=== PATIENT | male | born 1950 | race Caucasian/White ===

== ENCOUNTER 2021-11-17 08:46 | Outpatient (REF) | payer MEDICARE, SELFPAY ==
[2021-11-17 11:52] LABS: Appearance Urine CLEAR; Color Urine YELLOW; Glucose Urine UA NEG (NEG); Leukocyte Esterase Urine NEG (NEG); Nitrite Urine NEG (NEG); Specific Gravity - Urine 1.015 (1.005-1.025); Urine Blood NEG (NEG); Urine Ketones NEG (NEG); Urine Protein NEG (NEG-TRACE)
[2021-11-17 11:54] LABS: Alanine Aminotransferase 29 U/L (0-40); Albumin Level 4.6 g/dL (3.5-5.0); Alkaline Phosphatase 54 U/L (39-117); Anion Gap 12 (12-20); Aspartate Amino Transferase 19 U/L (5-37); Bilirubin Total 0.9 mg/dL (0.0-1.0); Blood Urea Nitrogen 18 mg/dL (9-16); Calcium 10.4 mg/dL (8.4-10.2); Carbon Dioxide 27 mmol/L (22-29); Chloride 106 mmol/L (96-108); Cholesterol 229 mg/dL; Estimated Glomerular Filt Rate > 60; Glucose Fasting 105 mg/dL (60-99); HDL Cholesterol 47 mg/dL; LDL Cholesterol Calculated 150 mg/dl; Potassium 4.7 mmol/L (3.3-5.1); Sodium 140 mmol/L (135-145); Total Protein 7.4 g/dL (6.5-8.0); Triglycerides 161 mg/dL
[2021-11-17 11:55] LABS: Hematocrit 48.2 % (42.0-52.0); Hemoglobin 15.9 g/dl (14.0-18.0); Mean Corpuscular Hemoglobin 31.1 pg (27.0-33.0); Mean Corpuscular Volume 94.3 fL (80.0-98.0); Mean Platelet Volume 10.6 fL (9.4-12.4); Platelet Count 198 X10*3/uL (160-400); Red Blood Count 5.11 X10*6/uL (4.60-5.80); Red Cell Distribution Width 12.3 % (11.0-16.0); White Blood Count 5.6 X10*3/uL (4.8-10.8)
[2021-11-17 12:16] LABS: Prostate Specific Antigen Scr < 0.05 ng/mL (<0.05-4.0); Vitamin D 25-OH Total 34.6 ng/mL (>30)
[2021-11-17 12:26] LABS: Squamous Epithelial Cell Urine 1+ /LPF
[2021-11-17 12:27] LABS: Bacteria Urine TRACE /LPF; RBC Urine 0 /HPF (0); WBC Urine 0-2 /HPF (0-4)
== END 2021-11-17 08:47 | disposition home or self-care (01) ==
LOC: HO.HMGCLDS 08:46
PROVIDERS: Visit Provider Internal Medicine
DX: Z00.00 Encounter for general adult medical examination without abnormal findings (principal); Z12.5 Encounter for screening for malignant neoplasm of prostate; E78.5 Hyperlipidemia, unspecified; I10 Essential (primary) hypertension; E55.9 Vitamin D deficiency, unspecified
CPT/HCPCS: 36415; 80053; 80061; 81001; 82306; 84153; 85027

== ENCOUNTER 2022-11-20 08:45 | Outpatient (REF) | payer MEDICARE, SELFPAY ==
[2022-11-20 11:25] LABS: MANUAL DIFF FLAG NO
[2022-11-20 11:33] LABS: Appearance Urine Turbid; Color Urine Yellow; Glucose Urine UA Negative (Negative); Leukocyte Esterase Urine Negative (Negative); Nitrite Urine Negative (Negative); PH 5.5 (5.0-9.0); Specific Gravity - Urine 1.015 (1.005-1.025); Urine Blood Negative (Negative); Urine Ketones Negative (Negative); Urine Protein Negative (Neg-Trace)
[2022-11-20 11:43] LABS: Basophils Absolute Auto 0.1 X10*3/uL (0.0-0.2); Basophils Percent Auto 1.2 % (0-2); Eosinophils Absolute Auto 0.2 X10*3/uL (0.0-0.4); Eosinophils Percent Auto 2.6 % (0-4); Hematocrit 47.2 % (42.0-52.0); Hemoglobin 15.7 g/dl (14.0-18.0); Imm Gran Abs Auto 0.01 X10*3/uL (0.00-0.03); Imm Gran Pct Auto 0.2 % (0.0-0.4); Lymphocytes Absolute Auto 1.9 X10*3/uL (1.2-4.9); Lymphocytes Percent Auto 32.8 % (20-40); Mean Corpuscular HGB Conc 33.3 g/dl (31.0-36.0); Mean Corpuscular Hemoglobin 31.6 pg (27.0-33.0); Mean Platelet Volume 10.5 fL (9.4-12.4); Monocytes Absolute Auto 0.5 X10*3/uL (0.1-1.2); Monocytes Percent Auto 8.5 % (2-11); Neutrophils Absolute Auto 3.2 x10*3/uL (2.0-8.3); Neutrophils Percent Auto 54.7 % (45-73); Platelet Count 206 X10*3/uL (160-400); Red Blood Count 4.97 X10*6/uL (4.60-5.80); Red Cell Distribution Width 12.7 % (11.0-16.0); White Blood Count 5.8 X10*3/uL (4.8-10.8)
[2022-11-20 11:49] LABS: Bacteria Urine None Seen (None Seen); Hyaline Casts Urine 0-2 /LPF (0-2); RBC Urine 0-2 /HPF (0-2); Squamous Epithelial Cell Urine 0-2 /HPF (0-2); WBC Urine 0-5 /HPF (0-5)
[2022-11-20 11:53] LABS: Estimated Average Glucose 105 mg/dL; Hemoglobin A1c % 5.3 %
[2022-11-20 12:23] LABS: Alanine Aminotransferase 35 U/L (0-40); Albumin Level 4.8 g/dL (3.5-5.0); Alkaline Phosphatase 61 U/L (39-117); Anion Gap 13 (12-20); Aspartate Amino Transferase 23 U/L (5-37); Bilirubin Total 0.7 mg/dL (0.0-1.0); Blood Urea Nitrogen 14 mg/dL (9-16); Calcium 10.3 mg/dL (8.4-10.2); Carbon Dioxide 27 mmol/L (22-29); Chloride 107 mmol/L (96-108); Cholesterol 228 mg/dL; Estimated Glomerular Filt Rate > 60; Glucose Fasting 98 mg/dL (60-99); HDL Cholesterol 50 mg/dL; LDL Cholesterol Calculated 147 mg/dl; PSA,Total (Free>4and<10) < 0.10 ng/mL (0.00-4.00); Potassium 4.5 mmol/L (3.3-5.1); Sodium 142 mmol/L (135-145); Total Protein 7.3 g/dL (6.5-8.0); Triglycerides 159 mg/dL
== END 2022-11-20 08:46 | disposition home or self-care (01) ==
LOC: HO.HMGCLDS 08:45
PROVIDERS: PCP Internal Medicine; Visit Provider Internal Medicine
DX: Z00.00 Encounter for general adult medical examination without abnormal findings (principal); Z12.5 Encounter for screening for malignant neoplasm of prostate; I10 Essential (primary) hypertension; E78.5 Hyperlipidemia, unspecified
CPT/HCPCS: 36415; 80053; 80061; 81001; 83036; 84153; 85025

== ENCOUNTER 2023-11-24 07:41 | Outpatient (AMB) | payer MEDICARE, SELFPAY ==
[2023-11-24 07:54] VITALS: BP 112/70; PULSE 56; O2SAT 97; BMI 24.1
--- NOTE | 2023-11-24 07:54 | MHC.PC.OV ---
Vital Signs 11/24/23 07:54 Height 6 ft Weight 178 lb BMI 24.1 BP 112/70 Blood Pressure Location Lt brachial Position Sitting Pulse 56 Pulse Source Pulse Oximeter Pulse Oximetry (%) 97 Oxygen Delivery Method Room Air Intake Visit Reasons: Annual PE Intake Note: Pt is here today for a PE. Allergies albuterol [ProAir HFA] Allergy (Unknown, Verified 11/24/23 08:02) unknown atorvastatin [Lipitor] Allergy (Unknown, Verified 11/24/23 08:02) unknown moxifloxacin [From Avelox] Allergy (Unknown, Verified 11/24/23 08:02) unknown niacin [Niaspan Extended-Release] Allergy (Unknown, Verified 11/24/23 08:02) unknown rosuvastatin [Crestor] Allergy (Unknown, Verified 11/24/23 08:02) unknown simvastatin Allergy (Unknown, Verified 11/24/23 08:02) unknown Medication List - Last Reconciled 11/24/23 by Aliyah Lopes MD amlodipine 5 mg PO DAILY losartan 100 mg PO DAILY Tobacco use date assessed: 11/24/23 Fall risk assessment: No Falls in past year Last assessed Fall Risk: 11/24/23 Dental Screening Dental Screen Date: 11/24/23 Did you have a dental visit in the last 12 months?: Yes Did you have a dental problem in the last 6 months where you did not have access to dental care?: No Was dental information given to patient?: Patient has dentist HPI Annual PE HPI Details Pt presents for PE. Pt c/o persistent cough since URI 1 month ago. Pt was treated with Prednisone and cough syrup without relief in [place]. Patient denies fever chills pleurisy shortness of breath wheezing. [facility] Medical History Vitamin D deficiency Annual physical exam Colonoscopy refused Actinic keratosis Radiculopathy of lumbar region History of prostate cancer Hyperlipidemia HTN (hypertension) Surgical History H/O prostatectomy Family History Father No problems noted. Mother No problems noted. Social History Housing: House Patient Tobacco Use Status: Former Tobacco user e-Cigarette/Vaping Use: Never Used Second Hand Smoke Exposure: No service: Yes Current occupational status: retired Cognitive needs: No Hearing needs: No Vision needs: Yes Questionnaire PHQ-9 Over the last 2 weeks, how often have you been bothered by any of the following problems? 1. Little interest or pleasure in doing things: not at all 2. Feeling down, depressed, or hopeless: not at all 3. Trouble falling or staying asleep, or sleeping too much: not at all 4. Feeling tired or having little energy: not at all 5. Poor appetite or overeating: not at all 6. Feeling bad about yourself - or that you are a failure or have let yourself or your family down: not at all 7. Trouble concentrating on things, such as reading the newspaper or watching television: not at all 8. Moving or speaking so slowly that other people could have noticed. Or the opposite - being so fidgety or restless that you have been moving around a lot more than usual: not at all 9. Thoughts that you would be better off or of hurting yourself in some way: not at all Total score: 0 Depression Screening Interpretation: Negative Depression Screening Done: Yes Source: Developed by Drs. Kashmir Avina, Carolina Pate, Mikie Mcneal and colleagues, with an educational julisa from [employer] software. Thrive Questionnaire Date Thrive assessed: 11/24/23 I am a: Patient What is your living situation today?: I have a steady place to live Within the past 12 months, did the food you bought not last and you didn't have the money to get more?: Never true Within the past 12 months, did you worry whether your food would run out before you got money to buy more?: Never true Do you have trouble paying for medicines?: No Do you have trouble getting transportation to medical appointments?: No Do you have trouble paying your heating and electricity bill?: No Do you have trouble taking care of your child, family member or friend?: No Do you have trouble with day-to-day activities such as bathing, preparing meals, shopping, managing finances, etc.?: No Are you currently unemployed and looking for a job?: No Are you interested in more education?: No Please select the resources that you would like help with: None THRIVE Score: 0 AUDIT C Alcohol Use Questionnaire (AUDIT-C) 1. How often do you have a drink containing alcohol?: Monthly or less 2. How many drinks containing alcohol do you have on a typical day when you are drinking?: 1 or 2 3. How often do you have six or more drinks on one occasion?: Never Total Score: 1 JASON-7 AMB Questionnaire JASON-7 Date JASON - 7 assessed: 11/24/23 Feeling nervous, anxious, or on edge: 0 = Not at all Not being able to stop or control worryin = Not at all Worrying too much about different things: 0 = Not at all Trouble relaxin = Not at all Being so restless that it is hard to sit still: 0 = Not at all Becoming easily annoyed or irritable: 0 = Not at all Feeling afraid as if something awful might happen: 0 = Not at all Total JASON-7 score (0-4 normal; 5-9 mild; 10-14 moderate; 15-21 severe): 0 Source: Developed by Drs. Kashmir Avina, Carolina Pate, Mikie Mcneal and colleagues, with an educational julisa from [employer] software. Review of Systems Const All systems reviewed & are unremarkable except as noted in HPI and below Eyes Reports no additional complaints ENT Reports no additional complaints Card Reports no additional complaints Resp Reports no additional complaints GI Reports no additional complaints Reports no additional complaints Musc Reports no additional complaints Physical exam (Primary Care) Vital Signs: Last Vital Signs Pulse 56 11/24/23 07:54 BP 112/70 11/24/23 07:54 Pulse Ox 97 11/24/23 07:54 Oxygen Delivery Method Room Air 11/24/23 07:54 BMI result Body Mass Index 24.1 Tobacco/Smoking Status: Tobacco use Status Tobacco use date assessed 11/24/23 11/24/23 08:08 Patient Tobacco Use Status Former Tobacco user 11/24/23 07:55 e-Cigarette/Vaping Use Never Used 11/24/23 07:55 PHQ-9: PHQ-9 Score PHQ-9: Total score 0 11/24/23 08:41 Depression Screening Interpretation: Negative Thrive Assessment: Date of Thrive Assessment Date Thrive assessed 11/24/23 11/24/23 08:08 Const General: no acute distress HENMT Head: Yes normal to inspection Ears: hearing grossly normal bilaterally Mouth: Normal oral and palatal mucosa present Throat: Yes posterior oropharynx normal Eyes General: appearance normal, both eyes and all related structures Neck Neck: Yes no lymphadenopathy and Yes supple Resp Effort & Inspection: normal respiratory effort Auscultation: crackles Cardio Rhythm: regular rhythm Heart sounds: S1 normal heart sound present and S2 normal heart sound present GI Inspection: Yes normal to inspection Palpation (GI): Soft to palpation Percussion: Yes normal to percussion Auscultation: normal bowel sounds Assessment and Plan Assessment & Plan (1) HTN (hypertension): Code(s): I10 - Essential (primary) hypertension Plan: Continue amlodipine and losartan (2) Hyperlipidemia: Code(s): E78.5 - Hyperlipidemia, unspecified Plan: Continue low-cholesterol diet (3) Annual physical exam: Code(s): Z00.00 - Encounter for general adult medical examination without abnormal findings Plan: Well-balanced diet regular physical activity discussed with the patient, patient declined colonoscopy Cologuard will be checked (4) Bronchitis: Code(s): J40 - Bronchitis, not specified as acute or chronic Plan: Z-Scooter as prescribed and supportive care discussed with the patient Orders: Orders Comprehensive [place]. Panel Fast Today E78.5 - Hyperlipidemia, unspecified, I10 - Essential (primary) hypertension, Z00.00 - Encounter for general adult medical examination without abnormal findings Complete Blood Count Auto Diff Today E78.5 - Hyperlipidemia, unspecified, I10 - Essential (primary) hypertension, Z00.00 - Encounter for general adult medical examination without abnormal findings Lipid Panel Today E78.5 - Hyperlipidemia, unspecified, I10 - Essential (primary) hypertension, Z00.00 - Encounter for general adult medical examination without abnormal findings PSA,Total (Free>4and<10) Today E78.5 - Hyperlipidemia, unspecified, I10 - Essential (primary) hypertension, Z00.00 - Encounter for general adult medical examination without abnormal findings UA w Microscopic Today E78.5 - Hyperlipidemia, unspecified, I10 - Essential (primary) hypertension, Z00.00 - Encounter for general adult medical examination without abnormal findings Referrals Cologuard Test E78.5 - Hyperlipidemia, unspecified, I10 - Essential (primary) hypertension, Z00.00 - Encounter for general adult medical examination without abnormal findings, Z12.11 - Encounter for screening for malignant neoplasm of colon, Z12.12 - Encounter for screening for malignant neoplasm of rectum Medications: New azithromycin For 250 mg dose pack: take 500 mg today (day 1), then 250 mg for 4 days (days 2-5) PO 6 tabs 0RF Refilled losartan 100 mg PO DAILY 90 tabs 3RF amlodipine 5 mg PO DAILY 90 tabs 3RF Coding Level of Care Code Est Pt Prev Care >65y(17023) Diagnoses HTN (hypertension) I10 Hyperlipidemia E78.5 Annual physical exam Z00.00 Bronchitis J40
== END 2023-11-24 15:54 | disposition home or self-care (01) ==
PROVIDERS: Visit Provider Internal Medicine
DX: I10 Essential (primary) hypertension (principal); E78.5 Hyperlipidemia, unspecified; Z00.00 Encounter for general adult medical examination without abnormal findings; J40 Bronchitis, not specified as acute or chronic
CPT/HCPCS: 99397

== ENCOUNTER 2023-11-25 07:32 | Outpatient (REF) | payer MEDICARE, SELFPAY ==
[2023-11-25 10:36] LABS: MANUAL DIFF FLAG NO
[2023-11-25 10:47] LABS: Basophils Percent Auto 0.7 % (0-2); Eosinophils Absolute Auto 0.3 X10*3/uL (0.0-0.4); Eosinophils Percent Auto 4.9 % (0-4); Hematocrit 44.4 % (42.0-52.0); Hemoglobin 14.8 g/dl (14.0-18.0); Imm Gran Abs Auto 0.01 X10*3/uL (0.00-0.03); Imm Gran Pct Auto 0.2 % (0.0-0.4); Lymphocytes Absolute Auto 1.7 X10*3/uL (1.2-4.9); Lymphocytes Percent Auto 31.5 % (20-40); Mean Corpuscular HGB Conc 33.3 g/dl (31.0-36.0); Mean Corpuscular Hemoglobin 31.2 pg (27.0-33.0); Mean Corpuscular Volume 93.5 fL (80.0-98.0); Mean Platelet Volume 10.4 fL (9.4-12.4); Monocytes Absolute Auto 0.4 X10*3/uL (0.1-1.2); Monocytes Percent Auto 8.1 % (2-11); Neutrophils Absolute Auto 2.9 x10*3/uL (2.0-8.3); Neutrophils Percent Auto 54.6 % (45-73); Platelet Count 182 X10*3/uL (160-400); Red Blood Count 4.75 X10*6/uL (4.60-5.80); Red Cell Distribution Width 12.7 % (11.0-16.0); White Blood Count 5.3 X10*3/uL (4.8-10.8)
[2023-11-25 10:48] LABS: Appearance Urine Clear; Color Urine Yellow; Glucose Urine UA Negative (Negative); Leukocyte Esterase Urine Negative (Negative); Nitrite Urine Negative (Negative); PH 5.5 (5.0-9.0); Specific Gravity - Urine 1.025 (1.005-1.025); Urine Blood Negative (Negative); Urine Ketones Negative (Negative); Urine Protein Negative (Neg-Trace)
[2023-11-25 11:02] LABS: Bacteria Urine None Seen (None Seen); Hyaline Casts Urine 0-2 /LPF (0-2); RBC Urine 0-2 /HPF (0-2); Squamous Epithelial Cell Urine 0-2 /HPF (0-2); WBC Urine 0-5 /HPF (0-5)
[2023-11-25 11:07] LABS: Alanine Aminotransferase 22 U/L (0-40); Albumin Level 4.4 g/dL (3.5-5.0); Alkaline Phosphatase 57 U/L (39-117); Anion Gap 13 (12-20); Aspartate Amino Transferase 17 U/L (5-37); Bilirubin Total 0.5 mg/dL (0.0-1.0); Blood Urea Nitrogen 18 mg/dL (9-16); Calcium 10.2 mg/dL (8.4-10.2); Carbon Dioxide 23 mmol/L (22-29); Chloride 108 mmol/L (96-108); Cholesterol 193 mg/dL (<200); Estimated Glomerular Filt Rate > 60; Glucose Fasting 91 mg/dL (60-99); HDL Cholesterol 50 mg/dL (>40); LDL Cholesterol Calculated 124 mg/dL (<100); Potassium 4.4 mmol/L (3.3-5.1); Sodium 140 mmol/L (135-145); Total Protein 7.2 g/dL (6.5-8.0); Triglycerides 97 mg/dL (<150)
[2023-11-25 11:20] LABS: PSA,Total (Free>4and<10) < 0.10 ng/mL (0.00-4.00)
== END 2023-11-25 07:33 | disposition home or self-care (01) ==
LOC: HO.HMGCLDS 07:32
PROVIDERS: PCP Internal Medicine; Visit Provider Internal Medicine
DX: Z00.00 Encounter for general adult medical examination without abnormal findings (principal); I10 Essential (primary) hypertension; Z12.5 Encounter for screening for malignant neoplasm of prostate; E78.5 Hyperlipidemia, unspecified
CPT/HCPCS: 36415; 80053; 80061; 81001; 84153; 85025

== ENCOUNTER 2024-06-14 11:05 | Outpatient (AMB) | payer MEDICARE, SELFPAY ==
--- NOTE | 2024-06-14 11:13 | AM.OFFWIN_ITS ---
Intake Vital Signs 06/14/24 11:17 Height 6 ft Weight 175 lb BMI 23.7 BP 122/80 Blood Pressure Location Rt brachial Position Sitting Pulse 83 Pulse Source Pulse Oximeter Temp 98.4 F Temp Source Oral Pulse Oximetry (%) 97 Oxygen Delivery Method Room Air Intake Visit Reasons: EP Cough, Mucus Intake Note: Patient here for voice being raspy, cough and mucus that started a few days ago. Patient Tobacco Use Status: Former Tobacco user Allergies albuterol [ProAir HFA] Allergy (Unknown, Verified 06/14/24 11:17) unknown atorvastatin [Lipitor] Allergy (Unknown, Verified 06/14/24 11:17) unknown moxifloxacin [From Avelox] Allergy (Unknown, Verified 06/14/24 11:17) unknown niacin [Niaspan Extended-Release] Allergy (Unknown, Verified 06/14/24 11:17) unknown rosuvastatin [Crestor] Allergy (Unknown, Verified 06/14/24 11:17) unknown simvastatin Allergy (Unknown, Verified 06/14/24 11:17) unknown Do you need a note to return to daycare/school/sports/work: No HPI HPI Comments History of Present Illness Details History of Present Illness The patient is a 73-year-old male presenting with persistent cough and chest congestion. He reports that the symptoms began three to four days prior with a raspy throat, which evolved into a productive cough within a day. He describes nocturnal coughing leading to sleeplessness and producing clear liquid initially, progressing to green sputum by the morning of this visit. The patient denies shortness of breath but reports feeling congestion localized within the chest. The patient has a known history of asthma and reports no current use of asthma medications due to a previous allergic reaction to an inhaler, which resulted in severe breathing difficulties. Previous adverse reactions to moxifloxacin are reported, likely due to administration on an empty stomach. No recent fever or wheezing has been noted, and home monitoring of oxygen saturation and temperature have been within normal ranges. There is a documented history of rapidly progressing chest congestion following colds, necessitating prompt antibiotic interventions to prevent bronchial complications by his PCP. Physical Exam General: Cooperative, healthy appearing, comfortable and no acute distress Orientation/consciousness: Patient oriented x3 Limitations: No limitations Head: Normal to inspection Ears: Hearing grossly normal bilaterally, external ears normal, right ear slightly erythematous, slight sliver of effusion on right TM, left TM normal Nose: Normal external nose present, Normal nares present and No nasal discharge present Face and sinus: Normal facial exam and Yes sinuses nontender Mouth: Normal oral and palatal mucosa present and moist mucous membranes Throat: Yes tonsils normal, Yes uvula midline. Posterior oropharynx erythema Eyes: Appearance normal, both eyes and all related structures Neck: Normal visual inspection Respirtory: Clear to auscultation bilaterally. Normal respiratory effort, able to speak in complete sentences, Actively coughing, no respiratory distress, not tachypneic, no tripod positioning and no use of accessory muscles Cardiovascular: Regular rate and rhythm. Normal S1 and S2 Skin: No rashes or lesions noted Neuro: Patient oriented x3 Extremities: Normal to inspection and Yes no clubbing, cyanosis or edema PFSH Medical History Vitamin D deficiency Annual physical exam Colonoscopy refused Actinic keratosis Radiculopathy of lumbar region History of prostate cancer Hyperlipidemia HTN (hypertension) Surgical History H/O prostatectomy Family History Father No problems noted. Mother No problems noted. Social History Housing: House Patient Tobacco Use Status: Former Tobacco user e-Cigarette/Vaping Use: Never Used Second Hand Smoke Exposure: No service: Yes Current occupational status: retired Cognitive needs: No Hearing needs: No Vision needs: Yes Review of Systems Const All systems reviewed & are unremarkable except as noted in HPI and below Physical Exam Vital Signs: Last Vital Signs Temp 98.4 F 06/14/24 11:17 Pulse 83 06/14/24 11:17 BP 122/80 06/14/24 11:17 Pulse Ox 97 06/14/24 11:17 Oxygen Delivery Method Room Air 06/14/24 11:17 BMI result Body Mass Index 23.7 Assessment & Plan Assessment & Plan (1) Bronchitis: Code(s): J40 - Bronchitis, not specified as acute or chronic Plan: 1. Prescribed Zpak for antibiotic and Anti-inflammatory effects. Advised to just take this antibiotic but if things were to worsen over the weekend, I have sent a prescription for Augmentin for coverage against suspected bacterial infections if symptoms worsen, especially given patient's history of rapid bronchial involvement. Recommended he not pick this up from the pharmacy unless things worsen over the holiday weekend, explained that this would treat him for an actual pneumonia which I do not think he has now. 2. Asthma: - Acknowledge the patient's refusal of inhaler use due to severe past allergic reaction; instead, emphasize monitoring of respiratory symptoms. 4. Ears: - Recommend [id number] ear drops, potentially beneficial for add ressing chronic itchiness unrelated to infection. Antibiotics prescribed would cover this small infection in the right ear 6. Follow-Up: - Schedule close follow-up should symptoms not resolve or worsen, particularly to avoid emergency care during the long weekend. Patient was informed and verbally consented to the use of an ambient scribe for clinic note documentation during this visit Medications: New azithromycin For 250 mg dose pack: take 500 mg today (day 1), then 250 mg for 4 days (days 2-5) PO 6 tabs 0RF amoxicillin-pot clavulanate 875-125 mg 1 tab PO Q12H 10 tabs 0RF Coding Level of Care Code Est Pt Level 3 (83522) Diagnoses Bronchitis J40
[2024-06-14 11:17] VITALS: BP 122/80; PULSE 83; TEMP 36.9; O2SAT 97; BMI 23.7
== END 2024-06-14 12:05 | disposition home or self-care (01) ==
PROVIDERS: PCP Internal Medicine; Visit Provider Physician Assistant
DX: J40 Bronchitis, not specified as acute or chronic (principal)

== ENCOUNTER → 2024-06-14 11:05 | Outpatient (BNVA) | payer MEDICARE, SELFPAY | PROVIDERS: PCP Internal Medicine; Visit Provider Physician Assistant | DX: J40 Bronchitis, not specified as acute or chronic (principal) | CPT/HCPCS: 99212 ==

== ENCOUNTER 2024-08-31 12:46 | Outpatient (AMB) | payer MEDICARE, SELFPAY ==
[2024-08-31 12:51] VITALS: BP 132/80; PULSE 76; TEMP 36.6; O2SAT 96; BMI 23.7
--- NOTE | 2024-08-31 12:51 | MHC.OFFWIV ---
Intake Vital Signs 08/31/24 12:51 Height 6 ft Weight 175 lb BMI 23.7 BP 132/80 Blood Pressure Location Rt brachial Position Sitting Pulse 76 Pulse Source Pulse Oximeter Temp 97.9 F Temp Source Oral Pulse Oximetry (%) 96 Intake Visit Reasons: Ep-cough, wheezing Intake Note: pt is here for cough, wheezing Patient Tobacco Use Status: Former Tobacco user Allergies albuterol [ProAir HFA] Allergy (Unknown, Verified 08/31/24 12:52) unknown atorvastatin [Lipitor] Allergy (Unknown, Verified 08/31/24 12:52) unknown moxifloxacin [From Avelox] Allergy (Unknown, Verified 08/31/24 12:52) unknown niacin [Niaspan Extended-Release] Allergy (Unknown, Verified 08/31/24 12:52) unknown rosuvastatin [Crestor] Allergy (Unknown, Verified 08/31/24 12:52) unknown simvastatin Allergy (Unknown, Verified 08/31/24 12:52) unknown Do you need a note to return to daycare/school/sports/work: No HPI HPI Comments History of Present Illness Details 73 y/o male patient who presents to the walk in clinic with c/o URI symptoms. Pt c/o cough, chest tightness and wheezing for 3 weeks now. [facility] Medical History (Updated 08/31/24 @ 13:09 by Carole Marr NP) Cough Acute respiratory disease Vitamin D deficiency Annual physical exam Colonoscopy refused Actinic keratosis Radiculopathy of lumbar region History of prostate cancer Hyperlipidemia HTN (hypertension) Surgical History H/O prostatectomy Family History Father No problems noted. Mother No problems noted. Social History Housing: House Patient Tobacco Use Status: Former Tobacco user e-Cigarette/Vaping Use: Never Used Second Hand Smoke Exposure: No service: Yes Current occupational status: retired Cognitive needs: No Hearing needs: No Vision needs: Yes Review of Systems Const All systems reviewed & are unremarkable except as noted in HPI and below Physical Exam Vital Signs: Last Vital Signs Temp 97.9 F 08/31/24 12:51 Pulse 76 02/13/25 12:51 BP 132/80 08/31/24 12:51 Pulse Ox 96 08/31/24 12:51 BMI result Body Mass Index 23.7 Const General: cooperative and no acute distress Nutritional Appearance: obese Orientation/consciousness: patient oriented x3 Resp Effort & Inspection: normal respiratory effort, able to speak in complete sentences, no audible wheezes and Actively coughing Auscultation: clear to auscultation bilaterally, no crackles, no rales, no rhonchi and no wheezes Cardio Heart sounds: S1 normal heart sound present and S2 normal heart sound present Neuro General: patient oriented x3 Assessment & Plan Assessment & Plan (1) Acute respiratory disease: Code(s): J06.9 - Acute upper respiratory infection, unspecified Plan: Ordered SARs (2) Cough: Code(s): R05.9 - Cough, unspecified Qualifiers: Cough type: subacute Qualified Code(s): R05.2 - Subacute cough Plan: Ordered Chest Xray. Pt is insisting on Abx, because he believes he has an infection in his lungs, and in the past he was given Abx with good relief. Ordered Abx per Request. Orders: Orders XR chest 2V Today J06.9 - Acute upper respiratory infection, unspecified, R05.9 - Cough, unspecified SARS-CoV2/FLU/RSV Today J06.9 - Acute upper respiratory infection, unspecified Medications: New amoxicillin 500 mg PO BID 5 days 10 caps 0RF J06.9 - Acute upper respiratory infection, unspecified, R05.2 - Subacute cough Coding Level of Care Code Est Pt Level 4 (70362) Diagnoses Acute respiratory disease J06.9 Subacute cough R05.2 Cough type: subacute Time Spent (min) 20
--- OUTSIDE RECORDS SUMMARY | 2024-08-31 12:54 | XMS_ITS | Continuity of Care Document ---
Author Organization [facility] [place] bimal Address [address] [place] [address] [address] [place] [address]- Care Team Providers Care Front End Wheel Loader Operator Name Role Phone Aliyah Lopes MD Primary Care Physician Encounter [facility] Date(s): 07/06/24 - 08/05/24 [facility] [address] [place] [id number] Attending Physician: Hayder Salcedo Admitting Physician: AdmHayder juarez Referring Physician: Admtr ArFarhad Encounter Type: Triage Allergies, Adverse Reactions, Alerts Substance Criticality Severity Reaction Reaction Severity Status ProAir HFA Active Medications Aerochamber See Instructions, # 1 application, Maintenance, Use with MDI's, 05/30/12 5:26:49 PM EST Start Date: 05/30/12 Status: Ordered Quantity: 1.0 Unit: application Repeat number: 1 amlodipine 5 mg oral tablet 1 tablet = 5 mg, By Mouth, Daily, 0 Refills, Maintenance, 12/31/11 1:00:46 PM EDT Start Date: 12/31/11 Status: Ordered Repeat number: 1 Flovent HFA 110 mcg/inh inhalation aerosol with adapter 2 puffs, Inhalation, 2 times a day, # 1 each, 11 Refills, Maintenance, 07/13/12 2:23:53 PM EST, Aerosol, [facility] Start Date: 07/13/12 Stop Date: 07/08/13 Status: Ordered Quantity: 1.0 Unit: each Repeat number: 12 losartan 25 mg oral tablet 1 tablet = 25 mg, By Mouth, Daily, 0 Refills, Maintenance, 12/31/11 1:00:38 PM EDT Start Date: 12/31/11 Status: Ordered Repeat number: 1 Problem List Condition Confirmation Course Effective Dates Status Health [facility] Informant Chronic cough Confirmed Active GERD (gastroesophageal reflux disease) Confirmed Active Wheezing Confirmed Active Social History Social History Type Response Smoking Status Never (less than 100 in lifetime) entered on: 06/08/24 Sex Sex Representation Male (finding) Patient Care team information Care Team Personnel Name: Aliyah Lopes MD Position: [facility] Physician - Primary Care Member Role: PCP Address: [address] [place] [address] Telecom: Care Team Related Persons Name: MAX BUCHANAN Insurance Providers Guarantor name: DAVIDSON Health Plan Information #: 1 Payer: [facility] [employer] Member Number: NA Policy Number: DAVIDSON Group Number: [id number]
== END 2024-08-31 13:29 | disposition home or self-care (01) ==
PROVIDERS: PCP Internal Medicine; Visit Provider Nurse Practitioner Family
DX: J06.9 Acute upper respiratory infection, unspecified (principal); R05.2 Subacute cough

== ENCOUNTER 2024-08-31 12:46 | Outpatient (REF) | payer MEDICARE, SELFPAY ==
--- NOTE | ~2024-08-31 | XR_ITS ---
EXAMINATION: XR CHEST CLINICAL INFORMATION: R05.9 - Cough, unspecified COMPARISON: 09/08/2017 TECHNIQUE: 2 views of the chest were obtained. FINDINGS: No consolidation , pleural effusion or pneumothorax. Cardiomediastinal silhouette size is normal. Multilevel spondylosis. XR/XR chest 2V IMPRESSION: No acute air space disease Electronically signed by: Ramirez Dobbs MD 08/31/2024 01:26 PM EST
[2024-08-31 17:35] LABS: Influenza A PCR NEGATIVE (Negative); Influenza B PCR NEGATIVE (Negative); Resp Syncy Virus RNA Qual PCR NEGATIVE (Negative); SARS COV2 PCR INHOUSE NEGATIVE (Negative)
== END 2024-08-31 12:47 | disposition home or self-care (01) ==
LOC: HO.HMGCX 12:46
PROVIDERS: PCP Internal Medicine; Visit Provider Nurse Practitioner Family
DX: J06.9 Acute upper respiratory infection, unspecified (principal); R05.2 Subacute cough
CPT/HCPCS: 0241U; 71046; 99212

== ENCOUNTER 2024-08-31 13:10 | Outpatient (REF) | payer MEDICARE, SELFPAY | END 2024-08-31 13:11 | disposition home or self-care (01) | LOC: HO.LAB 13:10 | PROVIDERS: Visit Provider Nurse Practitioner Family | DX: Z13.89 Encounter for screening for other disorder (principal) ==

== ENCOUNTER → 2024-08-31 13:11 | Outpatient (BNV) | payer MEDICARE, SELFPAY | PROVIDERS: PCP Internal Medicine; Visit Provider Radiology Diagnostic Radiology | DX: R05.9 Cough, unspecified (principal) | CPT/HCPCS: 71046 ==

== ENCOUNTER 2024-09-14 10:39 | Outpatient (AMB) | payer MEDICARE, SELFPAY ==
[2024-09-14 10:41] VITALS: BP 124/78; PULSE 58; RESP 18; TEMP 36.9; O2SAT 97; BMI 24.8
--- NOTE | 2024-09-14 10:41 | A.OFFPC_ITS ---
Vital Signs 09/14/24 10:41 Height 6 ft Weight 183 lb BMI 24.8 BP 124/78 Blood Pressure Location Lt brachial Position Sitting Respiration 18 Pulse 58 Pulse Source Pulse Oximeter Temp 98.5 F Temp Source Oral Pulse Oximetry (%) 97 Oxygen Delivery Method Room Air Intake Visit Reasons: Lungs Infection Intake Note: Pt is here today for a sick visit. Pt c/o persistent cough, pt was prescribed albuterol inhaler and prednisone and antibiotic but he is still coughing. Allergies albuterol [ProAir HFA] Allergy (Unknown, Verified 09/14/24 11:02) unknown atorvastatin [Lipitor] Allergy (Unknown, Verified 09/14/24 11:02) unknown moxifloxacin [From Avelox] Allergy (Unknown, Verified 09/14/24 11:02) unknown niacin [Niaspan Extended-Release] Allergy (Unknown, Verified 09/14/24 11:02) unknown rosuvastatin [Crestor] Allergy (Unknown, Verified 09/14/24 11:02) unknown simvastatin Allergy (Unknown, Verified 09/14/24 11:02) unknown Medication List - Last Reconciled 09/14/24 by Aliyah Lopes MD albuterol sulfate 90 mcg/actuation 2 puffs inhalation Q6H PRN amlodipine 5 mg PO DAILY losartan 100 mg PO DAILY prednisone 20 mg PO DAILY Tobacco use date assessed: 09/14/24 Fall risk assessment: No Falls in past year Last assessed Fall Risk: 09/14/24 Dental Screening Dental Screen Date: 11/24/23 HPI Lungs Infection HPI Details Patient presents for the follow-up of upper respiratory infection. He was treated with amoxicillin for 5 days and started prednisone 3 days ago. Patient has been using albuterol up to 4 times a day with good relief and taking [id number] cough expectant. He reports persistent cough with white sputum worse at the end of the day. Patient denies fever chills pleurisy sinus congestion night sweats. His energy level is back to baseline. [facility] Medical History (Updated 08/31/24 @ 13:09 by Carole Marr NP) Cough Acute respiratory disease Vitamin D deficiency Annual physical exam Colonoscopy refused Actinic keratosis Radiculopathy of lumbar region History of prostate cancer Hyperlipidemia HTN (hypertension) Surgical History H/O prostatectomy Family History Father No problems noted. Mother No problems noted. Social History Housing: House Patient Tobacco Use Status: Former Tobacco user e-Cigarette/Vaping Use: Never Used Second Hand Smoke Exposure: No service: Yes Current occupational status: retired Cognitive needs: No Hearing needs: No Vision needs: Yes Questionnaire PHQ-9 Over the last 2 weeks, how often have you been bothered by any of the following problems? 1. Little interest or pleasure in doing things: not at all 2. Feeling down, depressed, or hopeless: not at all 3. Trouble falling or staying asleep, or sleeping too much: not at all 4. Feeling tired or having little energy: not at all 5. Poor appetite or overeating: not at all 6. Feeling bad about yourself - or that you are a failure or have let yourself or your family down: not at all 7. Trouble concentrating on things, such as reading the newspaper or watching television: not at all 8. Moving or speaking so slowly that other people could have noticed. Or the opposite - being so fidgety or restless that you have been moving around a lot more than usual: not at all 9. Thoughts that you would be better off or of hurting yourself in some way: not at all Total score: 0 Source: Developed by Drs. Kashmir vAina, Carolina Pate, Mikie Mcneal and colleagues, with an educational julisa from [employer]. Thrive Questionnaire Date Thrive assessed: 09/14/24 I am a: Patient What is your living situation today?: I have a steady place to live Within the past 12 months, did the food you bought not last and you didn't have the money to get more?: Never true Within the past 12 months, did you worry whether your food would run out before you got money to buy more?: Never true Do you have trouble paying for medicines?: No Do you have trouble getting transportation to medical appointments?: No Do you have trouble paying your heating and electricity bill?: No Do you have trouble taking care of your child, family member or friend?: No Do you have trouble with day-to-day activities such as bathing, preparing meals, shopping, managing finances, etc.?: No Are you currently unemployed and looking for a job?: No Are you interested in more education?: No THRIVE Score: 0 JASON-7 AMB Questionnaire JASON-7 Date JASON - 7 assessed: 11/24/23 Source: Developed by Drs. Kashmir Avina, Carolina Pate, Mikie Mcneal and colleagues, with an educational julisa from [employer]. Review of Systems Const All systems reviewed & are unremarkable except as noted in HPI and below ENT Reports no additional complaints Card Reports no additional complaints Resp Reports no additional complaints GI Reports no additional complaints Physical exam (Primary Care) Vital Signs: Last Vital Signs Temp 98.5 F 09/14/24 10:41 Pulse 58 09/14/24 10:41 Resp 18 09/14/24 10:41 BP 124/78 09/14/24 10:41 Pulse Ox 97 09/14/24 10:41 Oxygen Delivery Method Room Air 09/14/24 10:41 BMI result Body Mass Index 24.8 Tobacco/Smoking Status: Tobacco use Status Tobacco use date assessed 09/14/24 09/14/24 11:04 Patient Tobacco Use Status Former Tobacco user 09/14/24 10:42 e-Cigarette/Vaping Use Never Used 09/14/24 10:42 PHQ-9: PHQ-9 Score PHQ-9: Total score 0 09/14/24 10:42 Thrive Assessment: Date of Thrive Assessment Date Thrive assessed 09/14/24 09/14/24 10:42 Const General: no acute distress HENMT Head: Yes normal to inspection Ears: TM's normal bilaterally Face and sinus: Yes normal facial exam Mouth: Normal oral and palatal mucosa present Neck Neck: Yes no lymphadenopathy and Yes supple Resp Effort & Inspection: normal respiratory effort Auscultation: clear to auscultation bilaterally Cardio Rhythm: regular rhythm Heart sounds: S1 normal heart sound present and S2 normal heart sound present Coding Level of Care Code Est Pt Level 3 (33814) Diagnoses HTN (hypertension) I10 Hyperlipidemia E78.5 Acute respiratory disease J06.9 Assessment & Plan Assessment & Plan (1) HTN (hypertension): Code(s): I10 - Essential (primary) hypertension Category: Medical Plan: Continue current medications (2) Hyperlipidemia: Code(s): E78.5 - Hyperlipidemia, unspecified Category: Medical Plan: Continue statin (3) Acute respiratory disease: Code(s): J06.9 - Acute upper respiratory infection, unspecified Category: Medical Plan: Continue prednisone albuterol inhaler and supportive care Orders: Orders Comprehensive [place]. Panel Fast 4 Months E78.5 - Hyperlipidemia, unspecified, I10 - Essential (primary) hypertension Lipid Panel 4 Months E78.5 - Hyperlipidemia, unspecified, I10 - Essential (primary) hypertension UA w Microscopic 4 Months E78.5 - Hyperlipidemia, unspecified, I10 - Essential (primary) hypertension Complete Blood Count Auto Diff 4 Months E78.5 - Hyperlipidemia, unspecified, I10 - Essential (primary) hypertension Medications: Refilled prednisone 20 mg PO DAILY 5 tabs 0RF
== END 2024-09-14 11:32 | disposition home or self-care (01) ==
PROVIDERS: PCP Internal Medicine; Visit Provider Internal Medicine
DX: I10 Essential (primary) hypertension (principal); E78.5 Hyperlipidemia, unspecified; J06.9 Acute upper respiratory infection, unspecified

== ENCOUNTER → 2024-09-14 10:39 | Outpatient (BNVA) | payer MEDICARE, SELFPAY | PROVIDERS: PCP Internal Medicine; Visit Provider Internal Medicine | DX: I10 Essential (primary) hypertension (principal); E78.5 Hyperlipidemia, unspecified; J06.9 Acute upper respiratory infection, unspecified | CPT/HCPCS: 99212 ==

== ENCOUNTER 2024-12-21 07:44 | Outpatient (REF) | payer MEDICARE, SELFPAY ==
[2024-12-21 10:11] LABS: MANUAL DIFF FLAG NO
[2024-12-21 10:14] LABS: Appearance Urine Clear; Color Urine Yellow; Glucose Urine UA Negative (Negative); Leukocyte Esterase Urine Negative (Negative); Nitrite Urine Negative (Negative); PH 5.5 (5.0-9.0); Specific Gravity - Urine 1.015 (1.005-1.025); Urine Blood Negative (Negative); Urine Ketones Negative (Negative); Urine Protein Negative (Neg-Trace)
[2024-12-21 10:20] LABS: Bacteria Urine None Seen (None Seen); Hyaline Casts Urine 0-2 /LPF (0-2); RBC Urine 0-2 /HPF (0-2); Squamous Epithelial Cell Urine 0-2 /HPF (0-2); WBC Urine 0-5 /HPF (0-5)
[2024-12-21 10:43] LABS: Basophils Percent Auto 0.7 % (0-2); Eosinophils Absolute Auto 0.3 X10*3/uL (0.0-0.4); Eosinophils Percent Auto 5.3 % (0-4); Hematocrit 43.7 % (42.0-52.0); Hemoglobin 14.8 g/dl (14.0-18.0); Imm Gran Abs Auto 0.01 X10*3/uL (0.00-0.03); Imm Gran Pct Auto 0.2 % (0.0-0.4); Lymphocytes Absolute Auto 1.8 X10*3/uL (1.2-4.9); Lymphocytes Percent Auto 32.1 % (20-40); Mean Corpuscular HGB Conc 33.9 g/dl (31.0-36.0); Mean Corpuscular Volume 91.4 fL (80.0-98.0); Mean Platelet Volume 10.4 fL (9.4-12.4); Monocytes Absolute Auto 0.6 X10*3/uL (0.1-1.2); Monocytes Percent Auto 9.6 % (2-11); Neutrophils Percent Auto 52.1 % (45-73); Platelet Count 187 X10*3/uL (160-400); Red Blood Count 4.78 X10*6/uL (4.60-5.80); Red Cell Distribution Width 12.8 % (11.0-16.0); White Blood Count 5.7 X10*3/uL (4.8-10.8)
[2024-12-21 11:07] LABS: Alanine Aminotransferase 31 U/L (0-40); Albumin Level 4.5 g/dL (3.5-5.0); Alkaline Phosphatase 66 U/L (39-117); Anion Gap 10 (12-20); Aspartate Amino Transferase 26 U/L (5-37); Bilirubin Total 0.5 mg/dL (0.0-1.0); Blood Urea Nitrogen 18 mg/dL (9-16); Calcium 10.1 mg/dL (8.4-10.2); Carbon Dioxide 24 mmol/L (22-29); Chloride 110 mmol/L (96-108); Cholesterol 195 mg/dL (<200); Estimated Glomerular Filt Rate > 60; Glucose Fasting 94 mg/dL (60-99); HDL Cholesterol 41 mg/dL (>40); LDL Cholesterol Calculated 131 mg/dL (<100); Potassium 4.3 mmol/L (3.3-5.1); Sodium 140 mmol/L (135-145); Triglycerides 119 mg/dL (<150)
== END 2024-12-21 07:45 | disposition home or self-care (01) ==
LOC: HO.HMGCLDS 07:44
PROVIDERS: PCP Internal Medicine; Visit Provider Internal Medicine
DX: I10 Essential (primary) hypertension (principal); E78.5 Hyperlipidemia, unspecified
CPT/HCPCS: 36415; 80053; 80061; 81001; 85025

== ENCOUNTER 2025-01-08 13:38 | Outpatient (AMB) | payer MEDICARE, SELFPAY ==
--- NOTE | 2025-01-08 14:13 | A.OFFPC_ITS ---
Vital Signs 01/08/25 14:14 Height 6 ft Weight 181 lb BMI 24.5 BP 120/76 Blood Pressure Location Rt brachial Position Sitting Respiration 18 Pulse 52 Pulse Source Pulse Oximeter Temp 98.4 F Temp Source Oral Pulse Oximetry (%) 98 Oxygen Delivery Method Room Air Intake Visit Reasons: Annual PE Intake Note: Pt is here today for PE. Allergies albuterol (ProAir HFA) Allergy (Unknown, Verified 01/08/25 14:32) unknown atorvastatin (Lipitor) Allergy (Unknown, Verified 01/08/25 14:32) unknown moxifloxacin (From Avelox) Allergy (Unknown, Verified 01/08/25 14:32) unknown niacin (Niaspan Extended-Release) Allergy (Unknown, Verified 01/08/25 14:32) unknown rosuvastatin (Crestor) Allergy (Unknown, Verified 01/08/25 14:32) unknown simvastatin Allergy (Unknown, Verified 01/08/25 14:32) unknown Medication List - Last Reconciled 01/08/25 by Aliyah Lopes MD albuterol sulfate 90 mcg/actuation 2 puffs inhalation Q6H PRN amlodipine 5 mg PO DAILY doxycycline hyclate 100 mg PO BID losartan 100 mg PO DAILY Tobacco use date assessed: 01/08/25 Fall risk assessment: No Falls in past year Last assessed Fall Risk: 01/08/25 Dental Screening Dental Screen Date: 01/08/25 Did you have a dental visit in the last 12 months?: Yes Did you have a dental problem in the last 6 months where you did not have access to dental care?: No Was dental information given to patient?: Patient has dentist HPI Annual PE HPI Details Pt presents for PE. Patient complains of persistent productive cough for the last 4 weeks with occasional yellow sputum worse when lying down at night. Patient denies fever chills pleurisy but reports occasional wheezing. Patient has been using albuterol before night with some relief. Patient has been taking doxycycline after a tick bite for 1 week and has 1 more week of prescription. [facility] Medical History (Updated 01/08/25 @ 15:11 by Aliyah Lopes MD) Cough Acute respiratory disease Vitamin D deficiency Annual physical exam Colonoscopy refused Actinic keratosis Radiculopathy of lumbar region History of prostate cancer Hyperlipidemia HTN (hypertension) Surgical History H/O prostatectomy Family History Father No problems noted. Mother No problems noted. Social History Housing: House Patient Tobacco Use Status: Former Tobacco user e-Cigarette/Vaping Use: Never Used Second Hand Smoke Exposure: No service: Yes Current occupational status: retired Cognitive needs: No Hearing needs: No Vision needs: Yes Questionnaire Thrive Questionnaire Date Thrive assessed: 01/08/25 I am a: Patient What is your living situation today?: I have a steady place to live Within the past 12 months, did the food you bought not last and you didn't have the money to get more?: Never true Within the past 12 months, did you worry whether your food would run out before you got money to buy more?: Never true Do you have trouble paying for medicines?: No Do you have trouble getting transportation to medical appointments?: No Do you have trouble paying your heating and electricity bill?: No Do you have trouble taking care of your child, family member or friend?: No Do you have trouble with day-to-day activities such as bathing, preparing meals, shopping, managing finances, etc.?: No Are you currently unemployed and looking for a job?: No Are you interested in more education?: No THRIVE Score: 0 AUDIT C Alcohol Use Questionnaire (AUDIT-C) 1. How often do you have a drink containing alcohol?: Monthly or less 2. How many drinks containing alcohol do you have on a typical day when you are drinking?: 1 or 2 3. How often do you have six or more drinks on one occasion?: Never Total Score: 1 JASON-7 AMB Questionnaire JASON-7 Date JASON - 7 assessed: 01/08/25 Feeling nervous, anxious, or on edge: 0 = Not at all Not being able to stop or control worryin = Not at all Worrying too much about different things: 0 = Not at all Trouble relaxin = Not at all Being so restless that it is hard to sit still: 0 = Not at all Becoming easily annoyed or irritable: 0 = Not at all Feeling afraid as if something awful might happen: 0 = Not at all Total JASON-7 score (0-4 normal; 5-9 mild; 10-14 moderate; 15-21 severe): 0 Source: Developed by Drs. Kashmir Avina, Carolina Pate, Mikie Mcneal and colleagues, with an educational julisa from [employer]. JASON-7 Assessment Billing JASON-7 Assessment Tool: JASON-7 Assessment 05322 Review of Systems Const All systems reviewed & are unremarkable except as noted in HPI and below Reports no additional complaints Eyes Reports no additional complaints ENT Reports no additional complaints Card Reports no additional complaints Resp Reports no additional complaints GI Reports no additional complaints Reports no additional complaints Musc Reports no additional complaints Physical exam (Primary Care) Vital Signs: Last Vital Signs Temp 98.4 F 01/08/25 14:14 Pulse 52 01/08/25 14:14 Resp 18 01/08/25 14:14 BP 120/76 01/08/25 14:14 Pulse Ox 98 01/08/25 14:14 Oxygen Delivery Method Room Air 01/08/25 14:14 BMI result Body Mass Index 24.5 Tobacco/Smoking Status: Tobacco use Status Tobacco use date assessed 01/08/25 01/08/25 14:37 Patient Tobacco Use Status Former Tobacco user 01/08/25 14:14 e-Cigarette/Vaping Use Never Used 01/08/25 14:14 Thrive Assessment: Date of Thrive Assessment Date Thrive assessed 01/08/25 01/08/25 14:37 Const General: no acute distress HENMT Head: Yes normal to inspection Ears: hearing grossly normal bilaterally Mouth: Normal oral and palatal mucosa present Throat: Yes posterior oropharynx normal Eyes General: appearance normal, both eyes and all related structures Neck Neck: Yes no lymphadenopathy and Yes supple Resp Effort & Inspection: normal respiratory effort Auscultation: crackles and rhonchi Cardio Rhythm: regular rhythm Heart sounds: S1 normal heart sound present and S2 normal heart sound present GI Inspection: Yes normal to inspection Palpation (GI): Soft to palpation Percussion: Yes normal to percussion Auscultation: normal bowel sounds Coding Level of Care Code Est Pt Prev Care >65y(44434) Diagnoses Subacute cough R05.2 Cough type: subacute HTN (hypertension) I10 Hyperlipidemia E78.5 Annual physical exam Z00.00 Additional Codes JASON-7 Assessment Billing - JASON-7 Assessment Tool: JASON-7 Assessment 37770 ([id number]) Assessment & Plan Assessment & Plan (1) Cough: Code(s): R05.9 - Cough, unspecified Category: Medical Qualifiers: Cough type: subacute Qualified Code(s): R05.2 - Subacute cough Plan: Patient will complete another week of doxycycline with Luis Ortiz. He will continue to use albuterol q.h.s. and restart antihistamine Zyrtec. Follow-up in 10 days (2) HTN (hypertension): Code(s): I10 - Essential (primary) hypertension Category: Medical Plan: Continue current medications (3) Hyperlipidemia: Comment: Diet controlled Code(s): E78.5 - Hyperlipidemia, unspecified Category: Medical Plan: Continue low-cholesterol diet (4) Annual physical exam: Code(s): Z00.00 - Encounter for general adult medical examination without abnormal findings Category: Medical Plan: Well-balanced diet regular physical activity discussed with the patient patient declined colonoscopy and Cologuard Medications: New benzonatate 100 mg PO BID 20 caps 0RF
[2025-01-08 14:14] VITALS: BP 120/76; PULSE 52; RESP 18; TEMP 36.9; O2SAT 98; BMI 24.5
== END 2025-01-08 15:03 | disposition home or self-care (01) ==
LOC: HO.HMCC 13:38
PROVIDERS: PCP Internal Medicine; Visit Provider Internal Medicine
DX: R05.2 Subacute cough (principal); I10 Essential (primary) hypertension; E78.5 Hyperlipidemia, unspecified; Z00.00 Encounter for general adult medical examination without abnormal findings

== ENCOUNTER → 2025-01-08 13:38 | Outpatient (BNVA) | payer MEDICARE, SELFPAY | PROVIDERS: PCP Internal Medicine; Visit Provider Internal Medicine | DX: Z00.00 Encounter for general adult medical examination without abnormal findings (principal); R05.2 Subacute cough; I10 Essential (primary) hypertension; E78.5 Hyperlipidemia, unspecified | CPT/HCPCS: 96127; 99397 ==

== ENCOUNTER 2025-01-22 09:43 | Outpatient (AMB) | payer MEDICARE, SELFPAY ==
[2025-01-22 09:52] VITALS: BP 116/64; PULSE 60; RESP 18; TEMP 36.7; O2SAT 98; BMI 24.3
--- NOTE | 2025-01-22 09:52 | MHC.PC.OV ---
Vital Signs 01/22/25 09:52 Height 6 ft Weight 179 lb BMI 24.3 BP 116/64 Blood Pressure Location Lt brachial Position Sitting Respiration 18 Pulse 60 Pulse Source Pulse Oximeter Temp 98.1 F Temp Source Oral Pulse Oximetry (%) 98 Oxygen Delivery Method Room Air Intake Visit Reasons: 2 weeks f/u Intake Note: Pt is here today for 2 weeks follow up visit. Allergies albuterol (ProAir HFA) Allergy (Unknown, Verified 01/22/25 09:54) unknown atorvastatin (Lipitor) Allergy (Unknown, Verified 01/22/25 09:54) unknown moxifloxacin (From Avelox) Allergy (Unknown, Verified 01/22/25 09:54) unknown niacin (Niaspan Extended-Release) Allergy (Unknown, Verified 01/22/25 09:54) unknown rosuvastatin (Crestor) Allergy (Unknown, Verified 01/22/25 09:54) unknown simvastatin Allergy (Unknown, Verified 01/22/25 09:54) unknown Medication List - Last Reconciled 01/22/25 by Aliyah Lopes MD albuterol sulfate 90 mcg/actuation 2 puffs inhalation Q6H PRN amlodipine 5 mg PO DAILY losartan 100 mg PO DAILY Tobacco use date assessed: 01/22/25 Dental Screening Dental Screen Date: 01/08/25 HPI 2 weeks f/u HPI Details Patient presents for the follow-up of chronic cough and postnasal drip. He tried Zyrtec, Flonase nasal spray and albuterol inhaler without significant improvement. He reports productive cough with small amount of white sputum, usually in the evening and in the morning. Patient reports occasionally wheezing when laying down but denies fever chills pleurisy shortness or breath or dyspnea on exertion with physical activity. Hypertension is controlled on current medications [facility] Medical History Cough Acute respiratory disease Vitamin D deficiency Annual physical exam Colonoscopy refused Actinic keratosis Radiculopathy of lumbar region History of prostate cancer Hyperlipidemia HTN (hypertension) Surgical History H/O prostatectomy Family History Father No problems noted. Mother No problems noted. Social History Housing: House Patient Tobacco Use Status: Former Tobacco user e-Cigarette/Vaping Use: Never Used Second Hand Smoke Exposure: No service: Yes Current occupational status: retired Cognitive needs: No Hearing needs: No Vision needs: Yes Questionnaire Thrive Questionnaire Date Thrive assessed: 09/14/24 I am a: Patient What is your living situation today?: I have a steady place to live Within the past 12 months, did the food you bought not last and you didn't have the money to get more?: Never true Within the past 12 months, did you worry whether your food would run out before you got money to buy more?: Never true Do you have trouble paying for medicines?: No Do you have trouble getting transportation to medical appointments?: No Do you have trouble paying your heating and electricity bill?: No Do you have trouble taking care of your child, family member or friend?: No Do you have trouble with day-to-day activities such as bathing, preparing meals, shopping, managing finances, etc.?: No Are you currently unemployed and looking for a job?: No Are you interested in more education?: No THRIVE Score: 0 JASON-7 AMB Questionnaire JASON-7 Date JASON - 7 assessed: 01/08/25 Source: Developed by Drs. Kashmir Avina, Carolina Pate, Mikie Mcneal and colleagues, with an educational julisa from [employer]. Review of Systems Const All systems reviewed & are unremarkable except as noted in HPI and below Eyes Reports no additional complaints ENT Reports no additional complaints Card Reports no additional complaints Resp Reports no additional complaints GI Reports no additional complaints Physical exam (Primary Care) Vital Signs: Last Vital Signs Temp 98.1 F 01/22/25 09:52 Pulse 60 01/22/25 09:52 Resp 18 01/22/25 09:52 BP 116/64 01/22/25 09:52 Pulse Ox 98 01/22/25 09:52 Oxygen Delivery Method Room Air 01/22/25 09:52 BMI result Body Mass Index 24.3 Tobacco/Smoking Status: Tobacco use Status Tobacco use date assessed 01/22/25 01/22/25 10:00 Patient Tobacco Use Status Former Tobacco user 01/22/25 10:00 e-Cigarette/Vaping Use Never Used 01/22/25 10:00 Thrive Assessment: Date of Thrive Assessment Date Thrive assessed 09/14/24 01/22/25 10:00 Const General: no acute distress HENMT Head: Yes normal to inspection Face and sinus: No sinus tenderness Throat: Yes postnasal drainage Neck Neck: Yes supple Resp Effort & Inspection: normal respiratory effort Auscultation: rhonchi and diminished lung sounds Cardio Rhythm: regular rhythm Heart sounds: S1 normal heart sound present and S2 normal heart sound present Coding Level of Care Code Est Pt Level 4 (42364) Complex EM visit Add On G2211 Diagnoses Chronic bronchitis J42 HTN (hypertension) I10 Postnasal drip R09.82 Assessment & Plan Assessment & Plan (1) Chronic bronchitis: Code(s): J42 - Unspecified chronic bronchitis Category: Medical Plan: Patient will try Anoro Ellipta and continue albuterol as needed. PFT was recommended but patient declined. He will follow-up in 6 weeks (2) HTN (hypertension): Code(s): I10 - Essential (primary) hypertension Category: Medical Plan: Continue current medications (3) Postnasal drip: Code(s): R09.82 - Postnasal drip Category: Medical Plan: Continue antihistamine and Flonase as needed Medications: New Anoro Ellipta 62.5-25 mcg/actuation (umeclidinium-vilanterol) 1 inh inhalation DAILY 60 ea 3RF NS
== END 2025-01-22 10:54 | disposition home or self-care (01) ==
LOC: HO.HMCC 09:43
PROVIDERS: PCP Internal Medicine; Visit Provider Internal Medicine
DX: J42 Unspecified chronic bronchitis (principal); I10 Essential (primary) hypertension; R09.82 Postnasal drip

== ENCOUNTER → 2025-01-22 09:43 | Outpatient (BNVA) | payer MEDICARE, SELFPAY | PROVIDERS: PCP Internal Medicine; Visit Provider Internal Medicine | DX: R05.3 Chronic cough (principal); R09.82 Postnasal drip; J42 Unspecified chronic bronchitis; I10 Essential (primary) hypertension; Z79.899 Other long term (current) drug therapy | CPT/HCPCS: 99212 ==

== ENCOUNTER 2025-03-14 09:37 | Outpatient (AMB) | payer MEDICARE, SELFPAY ==
[2025-03-14 09:43] VITALS: BP 110/78; PULSE 59; RESP 18; TEMP 36.8; O2SAT 96; BMI 24.7
--- NOTE | 2025-03-14 09:43 | MHC.PC.OV ---
Vital Signs 03/14/25 09:43 Height 6 ft Weight 182 lb BMI 24.7 BP 110/78 Blood Pressure Location Lt brachial Position Sitting Respiration 18 Pulse 59 Pulse Source Pulse Oximeter Temp 98.2 F Temp Source Oral Pulse Oximetry (%) 96 Oxygen Delivery Method Room Air Intake Visit Reasons: follow up Allergies albuterol (ProAir HFA) Allergy (Unknown, Verified 03/14/25 09:47) unknown atorvastatin (Lipitor) Allergy (Unknown, Verified 03/14/25 09:47) unknown moxifloxacin (From Avelox) Allergy (Unknown, Verified 03/14/25 09:47) unknown niacin (Niaspan Extended-Release) Allergy (Unknown, Verified 03/14/25 09:47) unknown rosuvastatin (Crestor) Allergy (Unknown, Verified 03/14/25 09:47) unknown simvastatin Allergy (Unknown, Verified 03/14/25 09:47) unknown Medication List - Last Reconciled 03/14/25 by Aliyah Lopes MD albuterol sulfate 90 mcg/actuation 2 puffs inhalation Q6H PRN amlodipine 5 mg PO DAILY losartan 100 mg PO DAILY montelukast 10 mg PO BEDTIME Tobacco use date assessed: 03/14/25 Fall risk assessment: No Falls in past year Last assessed Fall Risk: 03/14/25 Dental Screening Dental Screen Date: 01/08/25 HPI follow up HPI Details Pt presents for follow-up of chronic cough. He tried Anoro for 1 month without significant improvement. Patient reports cough mainly at night after laying down and coughing up small amount of green sputum in the morning. He denies sinus congestion and has been using saline nasal spray and Zyrtec for chronic postnasal drip. Patient denies dyspnea on exertion ,wheezing chest pains palpitations, PND orthopnea pleurisy. He had negative chest x-ray in August. He has been physically active working around the house, lifting heavy gravel. [facility] Medical History (Updated 03/14/25 @ 20:06 by Aliyah Lopes MD) Cough Acute respiratory disease Vitamin D deficiency Annual physical exam Colonoscopy refused Actinic keratosis Radiculopathy of lumbar region History of prostate cancer Hyperlipidemia HTN (hypertension) Surgical History H/O prostatectomy Family History Father No problems noted. Mother No problems noted. Social History Housing: House Patient Tobacco Use Status: Former Tobacco user e-Cigarette/Vaping Use: Never Used Second Hand Smoke Exposure: No service: Yes Current occupational status: retired Cognitive needs: No Hearing needs: No Vision needs: Yes Questionnaire Thrive Questionnaire Date Thrive assessed: 09/14/24 I am a: Patient What is your living situation today?: I have a steady place to live Within the past 12 months, did the food you bought not last and you didn't have the money to get more?: Never true Within the past 12 months, did you worry whether your food would run out before you got money to buy more?: Never true Do you have trouble paying for medicines?: No Do you have trouble getting transportation to medical appointments?: No Do you have trouble paying your heating and electricity bill?: No Do you have trouble taking care of your child, family member or friend?: No Do you have trouble with day-to-day activities such as bathing, preparing meals, shopping, managing finances, etc.?: No Are you currently unemployed and looking for a job?: No Are you interested in more education?: No THRIVE Score: 0 JASON-7 AMB Questionnaire JASON-7 Date JASON - 7 assessed: 01/08/25 Source: Developed by Drs. Kashmir Avina, Carolina Pate, Mikie Mcneal and colleagues, with an educational julisa from [employer]. Review of Systems Const All systems reviewed & are unremarkable except as noted in HPI and below Eyes Reports no additional complaints ENT Reports no additional complaints Card Reports no additional complaints Resp Reports no additional complaints GI Reports no additional complaints Reports no additional complaints Physical exam (Primary Care) Vital Signs: Last Vital Signs Temp 98.2 F 03/14/25 09:43 Pulse 59 03/14/25 09:43 Resp 18 03/14/25 09:43 BP 110/78 03/14/25 09:43 Pulse Ox 96 03/14/25 09:43 Oxygen Delivery Method Room Air 03/14/25 09:43 BMI result Body Mass Index 24.7 Tobacco/Smoking Status: Tobacco use Status Tobacco use date assessed 03/14/25 03/14/25 09:50 Patient Tobacco Use Status Former Tobacco user 03/14/25 09:44 e-Cigarette/Vaping Use Never Used 03/14/25 09:44 Thrive Assessment: Date of Thrive Assessment Date Thrive assessed 09/14/24 03/14/25 09:44 Const General: no acute distress HENMT Ears: TM's normal bilaterally General nose exam: Abnormal mucous membranes and turbinates present erythematous Face and sinus: Yes normal facial exam and No sinus tenderness Mouth: Normal oral and palatal mucosa present Throat: Yes postnasal drainage Eyes General: appearance normal, both eyes and all related structures Neck Neck: Yes supple Resp Effort & Inspection: normal respiratory effort Auscultation: rhonchi and diminished lung sounds Cardio Rhythm: regular rhythm Heart sounds: S1 normal heart sound present and S2 normal heart sound present GI Inspection: Yes normal to inspection Palpation (GI): Soft to palpation Percussion: Yes normal to percussion Coding Level of Care Code Est Pt Level 4 (19000) Diagnoses Subacute cough R05.2 Cough type: subacute HTN (hypertension) I10 Hyperlipidemia E78.5 Assessment & Plan Assessment & Plan (1) Cough: Comment: Normal chest x-ray August 2024, trial of Anoro without improvement Code(s): R05.9 - Cough, unspecified Category: Medical Qualifiers: Cough type: subacute Qualified Code(s): R05.2 - Subacute cough Plan: For chronic cough PFTs and CT of the lungs was recommended but patient declined. Montelukast will be added to antihistamine for chronic postnasal drip. Patient declined using steroid nasal spray (2) HTN (hypertension): Code(s): I10 - Essential (primary) hypertension Category: Medical Plan: Continue current medications (3) Hyperlipidemia: Comment: Diet controlled Code(s): E78.5 - Hyperlipidemia, unspecified Category: Medical Plan: Continue low-cholesterol diet Medications: New montelukast 10 mg PO BEDTIME 30 tabs 0RF ipratropium-albuterol 0.5 mg-3 mg(2.5 mg base)/3 mL 3 mL inhalation Q8H PRN 180 mL 3RF wheezing
== END 2025-03-14 14:19 | disposition home or self-care (01) ==
LOC: HO.HMCC 09:38
PROVIDERS: PCP Internal Medicine; Visit Provider Internal Medicine
DX: R05.2 Subacute cough (principal); I10 Essential (primary) hypertension; E78.5 Hyperlipidemia, unspecified

== ENCOUNTER → 2025-03-14 09:37 | Outpatient (BNVA) | payer MEDICARE, SELFPAY | PROVIDERS: PCP Internal Medicine; Visit Provider Internal Medicine | DX: R05.2 Subacute cough (principal); I10 Essential (primary) hypertension; E78.5 Hyperlipidemia, unspecified | CPT/HCPCS: 99212 ==

== ENCOUNTER 2025-06-20 08:37 | Outpatient (AMB) | payer MEDICARE, SELFPAY ==
[2025-06-20 08:44] VITALS: BP 106/64; PULSE 81; RESP 17; TEMP 36.8; O2SAT 96; BMI 24.7
--- NOTE | 2025-06-20 08:44 | MHC.PC.OV ---
Vital Signs 06/20/25 08:44 Height 6 ft Weight 182 lb BMI 24.7 BP 106/64 Blood Pressure Location Rt brachial Position Sitting Respiration 17 Pulse 81 Pulse Source Pulse Oximeter Temp 98.2 F Temp Source Oral Pulse Oximetry (%) 96 Oxygen Delivery Method Room Air Intake Visit Reasons: 3m follow up Intake Note: Pt is here today for 3 months follow up visit. Allergies albuterol (ProAir HFA) Allergy (Unknown, Verified 06/20/25 08:44) unknown atorvastatin (Lipitor) Allergy (Unknown, Verified 06/20/25 08:44) unknown moxifloxacin (From Avelox) Allergy (Unknown, Verified 06/20/25 08:44) unknown niacin (Niaspan Extended-Release) Allergy (Unknown, Verified 06/20/25 08:44) unknown rosuvastatin (Crestor) Allergy (Unknown, Verified 06/20/25 08:44) unknown simvastatin Allergy (Unknown, Verified 06/20/25 08:44) unknown Medication List - Last Reconciled 06/20/25 by Aliyah Lopes MD albuterol sulfate 90 mcg/actuation 2 puffs inhalation Q6H PRN amlodipine 5 mg PO DAILY ipratropium-albuterol 0.5 mg-3 mg(2.5 mg base)/3 mL 3 mL inhalation Q8H PRN losartan 100 mg PO DAILY montelukast 10 mg PO BEDTIME Tobacco use date assessed: 06/20/25 Fall risk assessment: No Falls in past year Last assessed Fall Risk: 06/20/25 Dental Screening Dental Screen Date: 01/08/25 HPI 3m follow up HPI Details Pt presents for follow-up on hypertension controlled on current medications. He complains of persistent cough with small amount of clear sputum worse after laying down. Patient took Z-Scooter for acute upper respiratory infection without significant improvement. He denies pleurisy shortness or breath wheezing PND orthopnea dyspnea on exertion. [facility] Medical History Cough Acute respiratory disease Vitamin D deficiency Annual physical exam Colonoscopy refused Actinic keratosis Radiculopathy of lumbar region History of prostate cancer Hyperlipidemia HTN (hypertension) Surgical History H/O prostatectomy Family History Father No problems noted. Mother No problems noted. Social History Housing: House Patient Tobacco Use Status: Former Tobacco user e-Cigarette/Vaping Use: Never Used Second Hand Smoke Exposure: No service: Yes Current occupational status: retired Cognitive needs: No Hearing needs: No Vision needs: Yes Questionnaire Thrive Questionnaire Date Thrive assessed: 09/14/24 Do you have trouble paying your heating and electricity bill?: No Do you have trouble taking care of your child, family member or friend?: No Do you have trouble with day-to-day activities such as bathing, preparing meals, shopping, managing finances, etc.?: No Are you currently unemployed and looking for a job?: No Are you interested in more education?: No Please select the resources that you would like help with: None THRIVE Score: 0 AUDIT C Alcohol Use Questionnaire (AUDIT-C) 1. How often do you have a drink containing alcohol?: Monthly or less 2. How many drinks containing alcohol do you have on a typical day when you are drinking?: 1 or 2 3. How often do you have six or more drinks on one occasion?: Never Total Score: 1 JASON-7 AMB Questionnaire JASON-7 Date JASON - 7 assessed: 01/08/25 Feeling nervous, anxious, or on edge: 0 = Not at all Not being able to stop or control worryin = Not at all Worrying too much about different things: 0 = Not at all Trouble relaxin = Not at all Being so restless that it is hard to sit still: 0 = Not at all Becoming easily annoyed or irritable: 0 = Not at all Feeling afraid as if something awful might happen: 0 = Not at all Total JASON-7 score (0-4 normal; 5-9 mild; 10-14 moderate; 15-21 severe): 0 Source: Developed by Drs. Kashmir Avina, Carolina Pate, Mikie Mcneal and colleagues, with an educational julisa from [employer] Review of Systems Const All systems reviewed & are unremarkable except as noted in HPI and below Eyes Reports no additional complaints ENT Reports no additional complaints Card Reports no additional complaints Resp Reports no additional complaints GI Reports no additional complaints Reports no additional complaints Musc Reports no additional complaints Physical exam (Primary Care) Vital Signs: Last Vital Signs Temp 98.2 F 06/20/25 08:44 Pulse 81 06/20/25 08:44 Resp 17 06/20/25 08:44 BP 106/64 06/20/25 08:44 Pulse Ox 96 06/20/25 08:44 Oxygen Delivery Method Room Air 06/20/25 08:44 BMI result Body Mass Index 24.7 Tobacco/Smoking Status: Tobacco use Status Tobacco use date assessed 06/20/25 06/20/25 08:49 Patient Tobacco Use Status Former Tobacco user 06/20/25 08:49 e-Cigarette/Vaping Use Never Used 06/20/25 08:49 Thrive Assessment: Date of Thrive Assessment Date Thrive assessed 09/14/24 06/20/25 08:49 Const General: no acute distress HENMT Head: Yes normal to inspection Face and sinus: Yes normal facial exam Eyes General: appearance normal, both eyes and all related structures Neck Neck: Yes no lymphadenopathy and Yes supple Resp Effort & Inspection: normal respiratory effort Auscultation: crackles bilateral and diffuse and diminished lung sounds Cardio Rhythm: regular rhythm Heart sounds: S1 normal heart sound present and S2 normal heart sound present GI Inspection: Yes normal to inspection Coding Level of Care Code Est Pt Level 4 (15000) Diagnoses Chronic cough R05.3 HTN (hypertension) I10 Hyperlipidemia E78.5 Assessment & Plan Assessment & Plan (1) Chronic cough: Code(s): R05.3 - Chronic cough Category: Medical Plan: Obtain PFTs (2) HTN (hypertension): Code(s): I10 - Essential (primary) hypertension Category: Medical Plan: Continue current medications (3) Hyperlipidemia: Comment: Diet controlled Code(s): E78.5 - Hyperlipidemia, unspecified Category: Medical Plan: Continue low-cholesterol diet Orders: Orders PFT pulmonary function test Today R05.3 - Chronic cough Complete Blood Count Auto Diff 6 Months E78.5 - Hyperlipidemia, unspecified, I10 - Essential (primary) hypertension, Z00.00 - Encounter for general adult medical examination without abnormal findings PSA,Total (Free>4and<10) 6 Months E78.5 - Hyperlipidemia, unspecified, I10 - Essential (primary) hypertension, Z00.00 - Encounter for general adult medical examination without abnormal findings UA w Microscopic 6 Months E78.5 - Hyperlipidemia, unspecified, I10 - Essential (primary) hypertension, Z00.00 - Encounter for general adult medical examination without abnormal findings Vitamin B12 and Folate 6 Months E78.5 - Hyperlipidemia, unspecified, I10 - Essential (primary) hypertension, Z00.00 - Encounter for general adult medical examination without abnormal findings Comprehensive [place]. Panel Fast 6 Months E78.5 - Hyperlipidemia, unspecified, I10 - Essential (primary) hypertension, Z00.00 - Encounter for general adult medical examination without abnormal findings Lipid Panel 6 Months E78.5 - Hyperlipidemia, unspecified, I10 - Essential (primary) hypertension, Z00.00 - Encounter for general adult medical examination without abnormal findings
== END 2025-06-20 11:09 | disposition home or self-care (01) ==
LOC: HO.HMCC 08:38
PROVIDERS: PCP Internal Medicine; Visit Provider Internal Medicine
DX: R05.3 Chronic cough (principal); I10 Essential (primary) hypertension; E78.5 Hyperlipidemia, unspecified

== ENCOUNTER → 2025-06-20 08:37 | Outpatient (BNVA) | payer MEDICARE, SELFPAY | PROVIDERS: PCP Internal Medicine; Visit Provider Internal Medicine | DX: R05.3 Chronic cough (principal); I10 Essential (primary) hypertension; E78.5 Hyperlipidemia, unspecified | CPT/HCPCS: 99212 ==